=== PATIENT | female | born 1985 | race Caucasian/White ===

== ENCOUNTER 2024-08-01 10:38 | Emergency (ER) | payer BC, SELFPAY ==
[2024-08-01 10:42] VITALS: BP 134/82
[2024-08-01 10:45] VITALS: BP 134/82
--- NOTE | 2024-08-01 10:46 | ED.GENMED ---
History of Present Illness
General
Chief Complaint: Fainting/Passed Out
Source: patient, spouse and ambulance crew
Exam Limitations: none
Time Seen by Provider: 08/01/24 10:41
Nursing documentation reviewed up to this point in time: agreed with
History of Present Illness
History of Present Illness:
39 yo female with no PMHX reportedly at [employer] about 30 minutes ago, her vision in both eyes became blurred 'my eyes kept skipping like during REM sleep,' EMS reports her with her stated she had a 45 second 'tonic clonic seizure and was
post ictal.' He caught her so she did not fall. Last thing pt recalls is her eyes going blurry and her telling her to hold onto his arm, does not remember EMS doing her EKG. Next thing she recalls is being in the ambulance.
No tongue injury, no incontinence.
Denies vision changes now, denies headache, n/v/d/c. Denies CP, SOB, abdominal pain. Denies numbness, weakness. No known sick contacts but does [place] in [place] with many elderly with Covid/Flu.
11:30 at bedside states pt was complaining her eyes felt funny, blurry, as he was leading her over to sit down, her head went back, she 'stiffended up' and he lowered her to the floor. States she got 'real tense and rigid for about a minute'
(no tonic clonic movements described) and started coming to before ambulance got there. He states she didn't even remember being at the store.
Past History
Past History
ED Past Medical History: None
ED Past Surgical History: Tonsilectomy
Social History
Tobacco: Non-smoker
Alcohol: Occasional
Personal:
Living: with family
Employment: Employed ([employer] )
Review of Systems
Review of Systems
Allergies reviewed?: Yes
All Other Systems: ROS reviewed and negative except as documented in HPI and ROS
Constitutional: Denies fever, fatigue or chills
EENT: Reports other (difficulty with far vision at baseline, saw psych tech for this); Denies sore throat
Respiratory: Denies cough or trouble breathing
Cardiac: Reports syncope; Denies chest pain, diaphoresis or palpitations
ABD/GI: Denies abdominal pain, nausea, vomiting, diarrhea, constipated, bloody stools, black stools or anorexia
: Denies dysuria, frequency, difficulty voiding or urgency
Musculoskeletal: Reports no symptoms
Skin: Reports no symptoms
Neurological: Reports no symptoms
Phy Exam
Physical Exam
Physical Exam:
GENERAL: No acute distress. A&Ox3.
CONSTITUTIONAL: Afebrile.
EYES: clear, conjunctivae normal, EOMs intact. PERRL
ENMT: moist mucus membranes, Pharynx nl
RESPIRATORY: Regular respirations, nonlabored, lungs clear.
CARDIOVASCULAR: Regular rate and rhythm, no murmurs, no rubs.
GI: Soft, nontender, normal BS
MUSCULOSKELETAL: Moves with ease. Well perfused.
SKIN: Warm, dry, pink
PSYCH: Normal mood and affect. Well kept, interactive and appropriate
NEUROLOGIC: Awake, alert and oriented. Speech normal. No focal neurological deficits. CN 2-12 intact. Finger to nose intact.
Course
Orders/Labs/Results
Orders:
Orders
08/01/24 10:45
CT Head W/o Iv Contrast Urgent
Comment:
Reason For Exam: new seizure
IV Insert/Care/Rem.- Treatment PRN
08/01/24 10:46
Test Result ONCE
08/01/24 11:05
COVID-19 Antigen Urgent
Source: Nasal Swab
Complete Blood Count/With Diff Urgent
Comprehensive Metabolic Panel Urgent
HCG, Serum Qualitative Screen Urgent
Influenza A+B Rapid Molecular Urgent
MARLO Source: Nasal Swab
Specimen Description:
08/01/24 11:55
Oseltamivir Phosphate [Tamiflu] 75 mg PO NOW STA
Abnormal Lab Results
08/01/24
11:05
RBC 3.44 L 10^6/uL
(4.20-5.40)
Hgb 10.6 L g/dL
(12.0-16.0)
Hct 31.8 L %
(37.0-47.0)
RDW 15.1 H %
(11.5-14.5)
Abs Immat Gran (auto) 0.1 H 10^3/uL
(0-0.05)
Absolute Lymphs (auto) 1.0 L 10^3/uL
(1.2-3.4)
Absolute Monos (auto) 0.7 H 10^3/uL
(0.1-0.6)
Immature Gran % 0.8 H %
(0-0.5)
Lymphocytes % 15.7 L %
(20.5-51.1)
Monocytes % 11.7 H %
(1.7-9.3)
Carbon Dioxide 21 L mmol/L
(22-30)
AST 92 H U/L
(14-36)
ALT 86 H U/L
(0-35)
08/01/24 11:05
08/01/24 11:05
Vital Signs
Initial and Last Documented VS:
Initial Vital Signs
BP
134/82
08/01/24 10:42
Last Documented Vital Signs
Temp Pulse Resp BP Pulse Ox
98.0 F 90 18 117/86 97
08/01/24 10:45 08/01/24 12:06 08/01/24 12:06 08/01/24 12:06 08/01/24 11:30
MDM/Problems Addressed
Differential Diagnosis Includes:
seizure, vaso vagal episode, brain tumor, Covid/Flu
MDM/Problems Addressed:
39 yo female with no PMHX reportedly at [employer] about 30 minutes ago, her vision in both eyes became blurred 'my eyes kept skipping like during REM sleep,' EMS reports her with her stated she had a 45 second tonic clonic seizure and was
post ictal. He caught her so she did not fall. Last thing pt recalls is her eyes going blurry and her telling her to hold onto his arm, does not remember EMS doing her EKG. Next thing she recalls is being in the ambulance. No tongue injury,
no incontinence.
Denies vision changes now, denies headache, n/v/d/c. Denies CP, SOB, abdominal pain. Denies numbness, weakness. No known sick contacts but does [place] in [place] with many elderly with Covid/Flu.
11:30 at bedside states pt was complaining her eyes felt funny, blurry, as he was leading her over to sit down, her head went back, she 'stiffended up' and he lowered her to the floor. States she got 'real tense and rigid for about a minute'
(no tonic clonic movements described) and started coming to before ambulance got there. He states she didn't even remember being at the store.
Afebrile, NAD
Neuro exam normal
11:30 a.m.
CBC: Hgb 10.6 otherwise unremarkable
CMP: With no clinically significant abnormality
HCG neg
COVID-negative
Influenza A positive
12:[address] NAD
Patient states her voice started getting hoarse yesterday, symptoms started within the past 24 hours, Tamiflu prescription sent to her pharmacy
This was most likely vasovagal episode due to the eye symptoms and flu
Pt totally back to baseline.
*Critical Care Note
Total Time (30-74mins, 75-104mins- exclusive of procedures): Not Applicable
ED Attending Note
-
Portions of this chart may have been created with voice recognition software.� Occasional wrong word or��sound alike� substitutions may have occurred due to the inherent limitations of voice recognition software.
Discharge Plan
Departure
Patient Disposition: Home (Routine Discharge)
Date of Disposition: 08/01/24
Time of Disposition: 11:55
Patient with high blood pressure during this ER visit?: No
Condition: Good
Discharge Problem:
Vasovagal episode, Influenza A
Instructions: Vasovagal Response, Flu in adults - ED discharge instructions
Prescriptions:
New
oseltamivir [Tamiflu] 75 mg capsule
75 mg PO BID Qty: 9 0RF
Referrals:
Your, Doctor [Other] - As needed
Stand Alone Forms: Return to Work
Activity Restrictions/Additional Instructions:
As we discussed, you have the Flu, you most likely had a vasovagal episode when you experienced the eye problems.
Interventions
Interventions:
*Risk Screen - Suicide Last Done: 08/01/24 10:45
*General Assessment Last Done: 08/01/24 10:45
*Neglect/Abuse Screening Last Done: 08/01/24 10:45
*ED COVID-19 Vaccine History Last Done: 08/01/24 10:54
ED- Cardiac Assessment Last Done: 08/01/24 10:55
ED- Neurological Assessment Last Done: 08/01/24 10:55
Discharge Date and Time
Print Language: LITHUANIAN
[2024-08-01 10:54] VITALS: BMI 26.4
[2024-08-01 11:00] VITALS: BP 140/95
[2024-08-01 11:14] LABS: % Basophils 0.7 % (0-2); % Eosinophils 2.1 % (0-6); % Immature Granulocytes 0.8 % (0-0.5); % Lymphocytes 15.7 % (20.5-51.1); % Monocytes 11.7 % (1.7-9.3); Absolute Eosinophils 0.1 10^3/uL (0-0.7); Absolute Immature Granulocytes 0.1 10^3/uL (0-0.05); Absolute Monocytes 0.7 10^3/uL (0.1-0.6); Absolute Neutrophils 4.2 10^3/uL (1.4-6.5); Hematocrit 31.8 % (37.0-47.0); Hemoglobin 10.6 g/dL (12.0-16.0); Mean Corp Hgb Conc. 33.3 g/dL (33.0-37.0); Mean Corpuscular Hgb 30.8 pg (27.0-31.0); Mean Corpuscular Volume 92.4 fL (81.0-99.0); Mean Platelet Volume 8.9 fL (7.4-10.4); Nucleated Red Blood Cells % 0 %; Platelet Count 287 10^3/uL (130-400); Red Blood Cell Count 3.44 10^6/uL (4.20-5.40); Red Cell Dist. Width 15.1 % (11.5-14.5); White Blood Cell Count 6.1 10^3/uL (4.8-10.8)
[2024-08-01 11:25] LABS: HCG, Serum Qualitative Screen Negative
[2024-08-01 11:29] LABS: ALT (SGPT) 86 U/L (0-35); AST (SGOT) 92 U/L (14-36); Albumin 4.3 g/dl (3.5-5.0); Alkaline Phosphatase 49 U/L (38-126); Blood Urea Nitrogen 12 mg/dl (7-17); Calcium 9.3 mg/dl (8.4-10.2); Carbon Dioxide 21 mmol/L (22-30); Chloride 102 mmol/L (98-107); Estimated Creatinine Clearance 106 ml/min; Glucose 74 mg/dl (70-99); Sodium 136 mmol/L (135-145); Total Bilirubin 0.4 mg/dl (0.2-1.3); Total Protein 7.3 g/dl (6.3-8.2); eGFR > 60.00
[2024-08-01 11:32] LABS: COVID-19 Antigen Negative (Negative)
[2024-08-01 12:06] VITALS: BP 117/86
[2024-08-01] MEDS: TAMIFLU 75 MG PO (12:06)
== END 2024-08-01 12:05 | disposition home or self-care (01) ==
LOC: EMR 10:38
PROVIDERS: Registered Nurse; EMERGENCY PHYSICIAN Emergency Medicine
DX: R55 Syncope and collapse (principal); J10.1 Influenza due to other identified influenza virus with other respiratory manifestations; R49.0 Dysphonia; R56.9 Unspecified convulsions; Z11.52 Encounter for screening for COVID-19
CPT/HCPCS: 99284; 70450; 80053; 84703; 85025; 87502; 87811

== ENCOUNTER 2025-01-13 18:54 | Emergency (ER) | payer BC, SELFPAY ==
[2025-01-13 18:59] VITALS: BP 115/86
[2025-01-13 19:08] LABS: Hematocrit 35.6 % (37.0-47.0); Hemoglobin 11.4 g/dL (12.0-16.0); Mean Corp Hgb Conc. 32.0 g/dL (33.0-37.0); Mean Corpuscular Volume 84.0 fL (81.0-99.0); Nucleated Red Blood Cells % 0 %; Platelet Count 337 10^3/uL (130-400); Red Cell Dist. Width 17.3 % (11.5-14.5)
[2025-01-13 19:21] LABS: ALT (SGPT) 88 U/L (0-35); AST (SGOT) 183 U/L (14-36); Albumin 4.6 g/dl (3.5-5.0); Alkaline Phosphatase 89 U/L (38-126); Blood Urea Nitrogen 2 mg/dl (7-17); Calcium 9.4 mg/dl (8.4-10.2); Carbon Dioxide 21 mmol/L (22-30); Chloride 94 mmol/L (98-107); Glucose 110 mg/dl (70-99); Potassium 3.1 mmol/L (3.5-5.1); Sodium 133 mmol/L (135-145); Total Protein 7.8 g/dl (6.3-8.2); eGFR > 60.00
[2025-01-13 20:01] VITALS: BP 117/77
[2025-01-13 21:00] VITALS: BP 112/71
[2025-01-13 21:08] LABS: COVID-19 Antigen Negative (Negative)
[2025-01-13] MEDS: TORADOL 30 MG IV (21:29)
--- NOTE | 2025-01-13 21:40 | ED.GENMED ---
History of Present Illness
General
Chief Complaint: Fainting/Passed Out
Time Seen by Provider: 01/13/25 20:18
History of Present Illness
History of Present Illness:
See MDM
Past History
Past History
ED Past Medical History: None
ED Past Surgical History: Tonsilectomy
Social History
Tobacco: Non-smoker
Alcohol: Occasional
Personal:
Living: with family
Employment: Employed ([employer] )
Phy Exam
Physical Exam
Physical Exam:
See MDM
Course
Orders/Labs/Results
Orders:
Orders
01/13/25 18:56
Electrocardiogram (*1) Urgent
Reason for Study: Syncope
EKG- Treatment ONCE
01/13/25 19:01
CMP [Comprehensive Metabolic Panel] Urgent
Complete Blood Count/With Diff Urgent
01/13/25 20:18
CT Head W/o Iv Contrast Urgent
Comment:
Reason For Exam: head injury, headache
01/13/25 20:47
COVID-19 Antigen Urgent
Source: Nasal Swab
Influenza A+B Rapid Molecular Urgent
MARLO Source: Nasal Swab
Specimen Description:
01/13/25 21:19
Ketorolac [Toradol] 30 mg IV NOW STA
Abnormal Lab Results
01/13/25
19:01
Hgb 11.4 L g/dL
(12.0-16.0)
Hct 35.6 L %
(37.0-47.0)
MCH 26.9 L pg
(27.0-31.0)
MCHC 32.0 L g/dL
(33.0-37.0)
RDW 17.3 H %
(11.5-14.5)
Absolute Monos (auto) 0.7 H 10^3/uL
(0.1-0.6)
Monocytes % 9.7 H %
(1.7-9.3)
Sodium 133 L mmol/L
(135-145)
Potassium 3.1 L mmol/L
(3.5-5.1)
Chloride 94 L mmol/L
(98-107)
Carbon Dioxide 21 L mmol/L
(22-30)
BUN 2 L mg/dl
(7-17)
Glucose 110 H mg/dl
(70-99)
Total Bilirubin 1.5 H mg/dl
(0.2-1.3)
AST 183 H U/L
(14-36)
ALT 88 H U/L
(0-35)
01/13/25 19:01
01/13/25 19:01
Vital Signs
Initial and Last Documented VS:
Initial Vital Signs
Temp Pulse Resp BP Pulse Ox
98.9 F 86 16 115/86 100
01/13/25 18:59 01/13/25 18:59 01/13/25 18:59 01/13/25 18:59 01/13/25 18:59
Last Documented Vital Signs
Temp Pulse Resp BP Pulse Ox
98.9 F 80 15 115/86 99
01/13/25 18:59 01/13/25 19:30 01/13/25 19:30 01/13/25 18:59 01/13/25 21:42
MDM/Problems Addressed
Differential Diagnosis Includes:
Note:
CHIEF COMPLAINT(S)
Episodes of passing out, possibly seizures, with visual disturbances.
HISTORY OF PRESENT ILLNESS
The patient is a 39-year-old female who experienced a sync[place] episode [place] shopping center, similar to a prior event occurring in the same location. During the episode, she reported a peculiar visual disturbance, describing the vision of a bird with
a rainbow frequently crossing her line of sight, moving from left to right. The patient did not experience incontinence and no vigorous shaking was observed by bystanders, although one person mentioned she seemed to be having a seizure.
This episode is reminiscent of a previous event where the patient reported similar pre-syncope symptoms and was able to catch herself before falling. In the past, following an episode, she was diagnosed with the flu as a possible underlying cause.
She denies any prior diagnosis of seizures and does not report any family history of seizures. The patient reported experiencing flu-like symptoms a few days prior, which included nausea and vomiting, but was feeling better on the day of the visit.
EXTERNAL RECORDS REVIEWED
The patient mentioned that during a previous episode, she was diagnosed with the flu.
PLAN
1. To conduct a computed tomography (CT) scan to evaluate intracranial structures.
2. Referral to a neurologist for further investigation, including potential electroencephalogram (EEG) testing.
3. Referral to a aircraft structural design engineer to evaluate for potential cardiac causes of syncope.
4. Temporary restriction on driving until further evaluation is complete, to ensure safety.
5. To discuss the case with a neurologist to determine if further diagnostic tests or medication adjustments are warranted.
6. Consideration of checking for influenza if symptoms suggest recurrence.
DIFFERENTIAL DIAGNOSIS
The Differential Diagnosis includes, in no particular order and is not limited to:
1. Syncope
2. Myoclonic syncope
3. Seizure disorder
4. Complex migraine with aura
5. Cardiac arrhythmia
6. Visual hallucinations related to neurological disturbances
7. Transient ischemic attack
8. Dehydration
9. Anxiety-related syncope
10. Migraine with aura
CARE-UPDATE
01/13/25 - 21:35
Patient reports improvement but still experiences a mild headache at the fall site; CT head is negative. Administering a dose of Toradol. After consultation with Neurology, complete seizure exclusion cannot be confirmed, and outpatient evaluation is
advised. Patient is advised against driving until cleared by primary care or neurologist, with a neurology referral to be provided. present and in agreement with the discussed plan.
Disposition:
SUMMARY OF ENCOUNTER
The patient, a 39-year-old female, was seen in the emergency department due to an episode of syncope with visual disturbances, potentially indicative of a seizure. A CT scan was performed, which was negative for any intracranial abnormalities. The
decision for outpatient follow-up with a neurologist was made for further investigation into her symptoms, including the possibility of seizures.
DISPOSITION
Discharge.
ASSESSMENT
The case suggests a potential seizure disorder due to the syncope episode with pronounced visual disturbance, warranting further neurological evaluation.
MANAGEMENT OF THE PATIENTS CARE WAS DISCUSSED WITH
Neurology discussed the need for outpatient follow-up and discharge instructions.
PLAN
1. Follow up with neurology for further evaluation, including potential EEG testing.
2. Patient advised to refrain from driving until cleared by a neurologist or primary care provider for safety reasons.
INDEPENDENT REVIEW OF LABS AND INTERPRETATION OF TESTS
- My independent interpretation of the CT head is negative for any acute intracranial pathology.
PATIENT EDUCATION AND COUNSELING
The patient was informed of the need for further neurological evaluation to address the potential seizure disorder. She was also educated on the importance of not driving until officially cleared by a healthcare provider to ensure her safety and
that of others.
FOLLOW-UP INSTRUCTIONS
Patient to follow up with a neurologist for further evaluation.
MEDICAL DECISION MAKING
- Number and Complexity of Problems Addressed: Chronic conditions affecting care include potential seizure disorder. Differential diagnosis includes syncope, myoclonic syncope, seizure disorder, complex migraine with aura, cardiac arrhythmia, visual
hallucinations related to neurological disturbances, transient ischemic attack, dehydration, anxiety-related syncope, migraine with aura.
- Data:
- Category 1: Tests and documents reviewed included the independent interpretation of the CT scan.
- Category 2: No additional history sources were utilized.
- Category 3: Management discussion occurred with neurology regarding outpatient follow-up.
DIAGNOSIS
- Potential seizure disorder, R56.9
*Pulse Oximetry
SaO2: 99
Oxygen Mode of Delivery: Room air
Patient hypoxic: no
*Critical Care Note
Total Time (30-74mins, 75-104mins- exclusive of procedures): Not Applicable
ED Attending Note
-
Portions of this chart may have been created with voice recognition software.� Occasional wrong word or��sound alike� substitutions may have occurred due to the inherent limitations of voice recognition software.
Discharge Plan
Departure
Patient Disposition: Home (Routine Discharge)
Date of Disposition: 01/13/25
Time of Disposition: 21:40
Patient with high blood pressure during this ER visit?: No
Discharge Problem:
Seizure-like activity
Instructions: Syncope (Fainting) (DC)
Prescriptions:
No Action
oseltamivir [Tamiflu] 75 mg capsule
75 mg PO BID Qty: 9 0RF
Referrals:
David Burgos MD [Active, Neurology]
NONE,* [Family Provider, Internal Medicine]
Activity Restrictions/Additional Instructions:
Please return for any worsening symptoms.
You may return at any time if you have further concerns.
Please follow up with your doctor at the first available appointment, preferably this week.
As we discussed, we cannot fully rule out a possible seizure. Because of this, do not drive a car until cleared by your primary care doctor or neurologist. Please call for expedited follow-up.
Thank you for choosing [facility].
Interventions
Interventions:
*Risk Screen - Suicide Last Done: 01/13/25 18:56
*General Assessment Last Done: 01/13/25 18:56
*Neglect/Abuse Screening Last Done: 01/13/25 18:56
*ED- Fall Risk Assessment Last Done: 01/13/25 18:56
*ED COVID-19 Vaccine History Last Done: 01/13/25 18:56
ED- Cardiac Assessment Last Done: 01/13/25 19:07
ED- Neurological Assessment Last Done: 01/13/25 19:07
Discharge Date and Time
Print Language: [id number]
== END 2025-01-13 21:50 | disposition home or self-care (01) ==
LOC: EMR 18:54
PROVIDERS: EMERGENCY PHYSICIAN Student in an Organized Health Care Education/Training Program
DX: R55 Syncope and collapse (principal); R56.9 Unspecified convulsions; R51.9 Headache, unspecified; Z11.52 Encounter for screening for COVID-19
CPT/HCPCS: 99284; 96374; 70450; 80053; 85025; 87502; 87811; 93005